=== PATIENT | female | born 1930 | race Caucasian/White ===

== ENCOUNTER 2017-06-11 18:12 | Emergency (ER) | payer OTHER ==
[~2017-06-11] VITALS: Ht 121.9 cm; Wt 50.0 kg
[2017-06-11] MEDS ORDERED: HYDR25TA PO (18:27)
[2017-06-11] MEDS ORDERED: ALBU8.5H8 IH (18:27)
[2017-06-11] MEDS ORDERED: A20IH1 IH (18:27)
[2017-06-11] MEDS ORDERED: LOSA50TA37 PO (18:27)
[2017-06-11] MEDS ORDERED: MONT10TA21 PO (18:27)
[2017-06-11] MEDS ORDERED: PRED20 PO (18:27)
[2017-06-11] MEDS ORDERED: ACET500C4 PO (18:27)
[2017-06-11] MEDS ORDERED: LORA10TA7 PO (18:27)
[2017-06-11] MEDS ORDERED: AMLO-512 PO (18:27)
[2017-06-11] MEDS ORDERED: CYCLOBENZAPRINE HCL 10 MG TABLET PO ONE (19:45)
[2017-06-11] MEDS ORDERED: IBUPROFEN 600 MG TABLET PO ONE (19:45)
[2017-06-11 20:35] LABS: APPEARANCE,URINE CLOUDY (CLEAR); BILIRUBIN,URINE NEGATIVE (NEGATIVE); GLUCOSE, URINE (UA) NEGATIVE (NEGATIVE); KETONES,URINE NEGATIVE (NEGATIVE); LEUKOCYTE ESTERASE ,URINE MODERATE (NEGATIVE); NITRATE,URINE NEGATIVE (NEGATIVE); OCCULT BLOOD,URINE NEGATIVE (NEGATIVE); PROTEIN,URINE NEGATIVE (NEGATIVE); UROBILINOGEN,URINE 0.2 mg/dL (<=1.0)
[2017-06-11 21:01] LABS: BASOPHILS % (AUTO) 0.5 % (0.0-2.0); EOSINOPHILS % (AUTO) 2.6 % (1.0-6.0); HEMATOCRIT 42.1 % (36-46); HEMOGLOBIN 13.6 g/dL (12.0-16.0); LYMPHOCYTES # (AUTO) 1.6 K/uL (1.0-4.8); LYMPHOCYTES % (AUTO) 11.4 % (22.0-44.0); MEAN CORPUSCULAR HEMOGLOBIN 27.5 pg (26.0-34.0); MEAN CORPUSCULAR HGB CONC 32.4 G/dL (31.0-37.0); MEAN CORPUSCULAR VOLUME 85 fL (80-100); MONOCYTES # (AUTO) 1.2 K/uL (0.1-1.0); MONOCYTES % (AUTO) 8.6 % (2.0-9.0); NEUTROPHILS # (AUTO) 10.5 K/uL (1.8-7.7); NEUTROPHILS % (AUTO) 76.9 % (40.0-70.0); PLATELET COUNT (AUTO) 269 K/uL (150-450); RED BLOOD CELL COUNT(AUTO) 4.96 MIL/uL (4.00-5.20); RED CELL DISTRIBUTION WIDTH 15.4 % (11.5-14.5)
[2017-06-11 21:09] LABS: CALCIUM, TOTAL 8.4 mg/dL (8.8-10.5); CREATININE 0.95 mg/dL (0.60-1.30); POTASSIUM 3.6 mmol/L (3.5-5.1)
[2017-06-11 21:17] LABS: ALBUMIN 3.3 g/dL (3.4-5.0); BILIRUBIN,TOTAL 0.3 mg/dL (0.1-1.0); TOTAL PROTEIN, SERUM 6.4 g/dL (6.4-8.2)
[2017-06-11 22:30] LABS: RBC,URINE None Seen /HPF (0-2)
[2017-06-11 22:31] LABS: BACTERIA,URINE Few /HPF (None Seen); SQUAMOUS EPITHELIAL CELL,UR Many /LPF (None Seen)
[2017-06-11 23:08] VITALS: BP 133/78
== END 2017-06-11 23:10 | disposition home or self-care (01) ==
LOC: EMS 18:14
DX: N39.0 Urinary tract infection, site not specified (principal); M25.512 Pain in left shoulder; I10 Essential (primary) hypertension; J45.909 Unspecified asthma, uncomplicated
CPT/HCPCS: 71046; 87086; 93005; 99285